=== PATIENT | male | born 1965 | race Caucasian/White ===

== ENCOUNTER 2020-07-18 20:28 | Observation (INO) | payer SELFPAY ==
[2020-07-18] MEDS ORDERED: Sodium Chloride 0.9% 10 ML Syringe FLUSH PRN (20:31)
[2020-07-18] MEDS ORDERED: Labetalol 100 MG/20 ML MDV IVPUSH ONE (20:31)
[2020-07-18] MEDS ORDERED: Sodium Chloride 0.9% 1,000 ML IV STA (20:31)
[2020-07-18] MEDS ORDERED: Sodium Chloride 0.9% 10 ML SDV IV PRN (20:31)
[2020-07-18] MEDS ORDERED: Sodium Chloride 0.9% 2.5 ML Syringe FLUSH PRN ×2 (20:31)
[2020-07-18] MEDS ORDERED: Iopamidol 755 MG/ML 500 ML Multipack Bottle IVPUSH STA (20:57)
--- NOTE | 2020-07-18 21:22 | CT ---
INDICATION: STROKE CODE CT HEAD WITHOUT CONTRAST TECHNIQUE: Multiple axial CT images were performed through the head without intravenous contrast administration. COMPARISON: No previous studies are currently available for comparison. FINDINGS: No acute intracranial hemorrhage is identified. No extra-axial collections are evident and there is no mass effect or midline shift. Ventricles are normal in size and configuration. Brain parenchyma appears normal with unremarkable stallings-white differentiation. Osseous structures are within normal limits and no fractures are seen. Included portions of the paranasal sinuses and mastoid air cells are normally aerated aside from minimal mucosal thickening in the right maxillary sinus. IMPRESSION: Negative non-contrast head CT. AMITA RBENNER MD [facility] Dictated by: Aries Brenenr MD @ 07/18/2020 21:21:40 (Electronically Signed)
--- NOTE | 2020-07-18 21:22 | CT ---
DATE: 07/18/2020 CLINICAL HISTORY: Patient with focal neurological deficits. TECHNIQUE: Standard helical CT image acquisition through the head and neck was performed after intravenous contrast bolus enhancement. Multiplanar reconstructed images were performed and interpreted. COMPARISON: CT same day. FINDINGS: The origins of the great vessels from the aortic arch are patent. The origin of the right vertebral artery is patent. The origin of the left vertebral artery is patent. The common carotid arteries are patent There is no stenosis at the origin of the right internal carotid artery. There is no stenosis at the origin of the left internal carotid artery. The rest of the cervical segments of the internal carotid arteries are patent up to their intracranial segments. The intracranial segments of the internal carotid arteries are patent. The left vertebral artery is dominant. The cervical segments of the vertebral arteries are patent. The intracranial segments of the vertebral arteries are patent. The middle cerebral arteries are normal without aneurysm or proximal occlusion identified. The anterior cerebral arteries are normal without aneurysm or proximal occlusion identified. The anterior communicating artery is well visualized and appears normal. The basilar artery is normal without aneurysm or occlusion. The posterior cerebral arteries are normal without aneurysm or proximal occlusion. There is normal opacification of major intracranial venous structures. The visualized lung apices demonstrate severe emphysema. The thyroid gland is unremarkable. The soft tissues of the neck are unremarkable. There are degenerative changes in the cervical spine. IMPRESSION: Normal CT angiogram of the head and neck. Please note that all CT scans at this facility use dose modulation, iterative reconstruction, and/or weight-based dosing when appropriate to reduce radiation dose to as low as reasonably achievable. Dictated by Janett Brar MD @ Jul 18 2020 11:28PM Signed by Dr. Janett Brar @ Jul 18 2020 11:34PM
--- NOTE | 2020-07-18 21:29 | EDM.PDOC ---
ED HPI GENERAL MEDICAL PROBLEM - General Chief Complaint: Neuro Symptoms/Deficits Stated Complaint: POSSIBLE STROCK Time Seen by Provider: 07/18/20 20:30 - History of Present Illness INITIAL COMMENTS - FREE TEXT/NARRATIVE: HISTORY AND PHYSICAL: History of present illness: This is a 54-year-old gentleman with history significant for bipolar affective disorder who presents ER today with acute onset of headache and left-sided we akness that was identified by EMS upon their arrival. Patient's last known well was 7:45 PM. Patient reports that he was at home and invited friends him over for dinner. Patient reports that while he was standing he started feeling extremely dizzy, had pain and pressure to his left eye, reports he was developing a headache and some photophobia. He reports that he started feeling weak to both his lower extremities and so he sat down so he does not fall. Patient reports that he start feeling extremely dizzy. EMS was dispatched by his friends and secondary to the symptoms. EMS reports upon arrival he was having significant weakness to his left upper and left lower extremity. They report that he was able to walk but was dragging his leg. When I spoke to the patient, he reports that he felt weak all over and had no focal weakness. Patient reports that he had no slurring of his speech or difficulty finding words. Patient reports that he was having a hard time speaking but felt it was secondary to his mouth being extremely dry and nervous. Patient denies any double vision or blurred vision. Patient denies any focal weakness to his upper or lower extremities. Patient reports that he felt weak all over. Patient denies any chest pain or shortness of breath. Patient denies any abdominal pain or discomfort. Patient has a recent fevers, shakes, chills, nausea, vomiting, diarrhea, dysuria, frequency, urgency, melena, bright red blood per rectum. Patient reports no prior abdominal or chest surgeries. Patient reports no history of hypertension, diabetes, liver, lung, kidney problems although he reports that he cannot say for sure that he does not have any of these illnesses secondary to limited access to healthcare secondary to lack of insurance issues. Review of systems: As per history of present illness and below otherwise all systems reviewed and negative. Past medical history: As per history of present illness and as reviewed below otherwise noncontribu tory. Surgical history: As per history of present illness and as reviewed below otherwise noncontributory. Social history: No reported history of drug or alcohol abuse. Family history: As per history of present illness and as reviewed below otherwise noncontributory. Physical exam: This patient was seen and evaluated during the 2019 SARS-CoV-2 novel coronavirus pandemic period. Community viral transmission is ongoing at time of this encounter and the emergency department is operating under pandemic response procedures. Constitutional: Patient is oriented to person, place, and time. Appears well- developed and well-nourished. No distress. HEENT: Moist mucous membranes Head: Normocephalic and atraumatic Eyes: Right eye exhibits no discharge. Left eye exhibits no discharge. No scleral icterus Neck: Normal range of motion. No tracheal deviation present. Cardiovascular: Normal rate and regular rhythm. Pulmonary: Effort normal, no respiratory distress. Abdominal: No distention Musculoskeletal: Normal range of motion Neurologic: Alert and oriented to person, place and time. Skin: [place], warm and dry. Psychiatric: Normal mood and affect. Behavior is normal. Judgment and thought content normal. Nursing note and vital signs have been reviewed Neuro: A&Ox3. Cranial nerves II-XII grossly intact, 5/5 strength to bilateral upper and lower extremities, sensation intact to bilateral upper and lower extremities, no nystagmus, PERRLA, EOMI, normal speech, proprioception intact to bilateral lower extremities, normal finger to nose test, gait normal, no facial asymmetry. 1a) Level of consciousness: 0=alert; 1=not alert but arousable by minor stimulation; 2=not alert: requires repeated stimulation to attend or is obtunded and requires strong or painful stimulation to make movements; 3=responds only with reflex motor or autonomic effects or totally unresponsive, flaccid and areflexic SCORE [0] 1b) LOC questions ("what month is it?", "how old are you?"): 0=answers both correctly; 1=answers one correctly; 2=answers neither correctly SCORE 0 1c) LOC commands (command patient to "open and close your eyes. Net Maker and release your hand.): 0=performs both correctly; 1=performs one correctly; 2=performs neither correctly SCORE 0 2) Best gaze ("follow my finger"): 0=normal; 1=partial gaze palsy; 2=forced deviation or total gaze paresis SCORE 0 3) Visual smith (use confrontation, finger counting, or visual threat. confront upper/lower quadrants of visual field): 0=no visual loss; 1=partial hemianopsia; 2=complete hemianopsia; 3=bilateral hemianopsia SCORE 0 4) Facial palsy (by words or pantomime, encourage patient to: "Show me your teeth. Raise your eyebrows. Close your eyes."): 0=normal symmetrical movement; 1=minor paralysis (flattened nasolabial fold, asymmetry on smiling); 2=partial paralysis (lower face); 3=complete paralysis SCORE 0 5) Arm motor (alternately position patient's arms. extend each arm with palms down [90 degrees if sitting, 45 degrees if supine] - test each arm in turn and start with nonparetic arm first): 0=no drift; 1=drift (arm falls before 10 seconds); 2=some effort vs. gravity; 3=no effort vs. gravity; 4=no movement; UN (untestable)=amputation or joint fusion SCORE 0 6) Leg motor (alternately position patient's legs. extend each leg [30 degrees, always while supine] - test nonparetic leg first): 0=no drift; 1=drift (leg falls before 5 seconds); 2=some effort vs. gravity; 3= no effort vs. gravity; 4=no movement; UN=amputation or joint fusion SCORE 0 7) Limb ataxia (ask patient [eyes open] to: "touch your finger to your nose. touch your heel to your [place]"): 0=absent; 1=present in one limb; 2=present in two or more limbs; UN=amputation or joint fusion SCORE 0 8) Sensory (test as many body parts as possible [arms and not hands, legs, trunk, face] for sensation using pinprick or noxious stimuli [in the obtunded or aphasic patient]): 0=normal; 1=mild to moderate sensory loss; 2=severe to total sensory loss SCORE 0 9) Best language (using pictures and a sentence list, ask patient to "describe what you see in this picture. Name the items in this picture. Read these senten tyrell"): 0=no aphasia, 1=mild to moderate aphasia; 2=severe aphasia; 3=mute, global aphasia SCORE 0 10) Dysarthria (using a simple word list, ask patient to: "read these words" or "repeat these words"): 0=normal articulation; 1=mild to moderate dysarthria; 2=severe dysarthria; UN=intubated or other physical barrier SCORE 0 11) Extinction and inattention (sufficient information to determine these scores may have been obtained during the prior testing): 0=no abnormality; 1=visual, tactile, auditory, spatial or personal inattention; 2=profound tre-inattention or extinction to more than one modality SCORE 0 TOTAL NIHSS Score: 0 Diagnostics: CBC, CMP, PT PTT, troponin, CT of the head, CT of the head and neck, EKG: As interpreted by ER physician: Cheri: Nonspecific ST-T wave abnormalities Normal axis No evidence of ST elevation WI Normal sinus rhythm heart rate of Chest Xray: Normal cardiac silhouette No infiltrates or effusions identified. No PTX No evidence of acute bony fracture. As interpreted by ER MD: [employer]: Labetalol 20 mg IV Assessment and plan: This is a 54-year-old gentleman who presents ER today as a stroke alert secondary to episode of weakness to his left upper and left lower extremity as witnessed by EMS. Per EMS, the patient was having no difficulty speaking but was having repetitive questions at times. Patient reports that he was not feeling well prior to eating dinner and was having generalized weakness all throughout. Patient does not recall having any focal deficit, slurring speech, double vision. EMS reports that his blood pressure upon their arrival was significantly elevated, the patient was complaining of a severe headache, and was having some weakness to his left upper and left lower extremity. They report that he was able to ambulate and move his extremities but they were slightly weaker than on the right side. Upon arrival to the ED, the patient has no identifiable weakness to his upper or lower extremities on either the left or the right side. Patient's NIH score is 0 at this time. Patient had a CT scan of his head as well as a CTA of his head and neck that did not reveal any acute pathology. Upon arrival to the ED the patient did have significantly elevated blood pressure which was treated with labetalol 20 mg IV. Given the weakness identified by EMS and the patient's severe blood pressure, we will need to admit patient for possible TIA/hypertensive crisis. Patient is currently asymptomatic we will continue to reassess his blood pressure at this time. 9:45 PM: Patient was reevaluated by me shortly after receiving his labetalol. Patient's blood pressure currently is 156/106. Patient reports that the pain and discomfort in his left eye is completely resolved but now reports he got a l ittle bit of discomfort behind his right eye. Patient reports that neurologically he feels completely back to baseline. He reports no weakness in his lower or upper extremities. Patient reports no difficulty with his speech. Patient denies any paresthesias. Patient reports no difficulty with word finding. Patient symptoms at this time of completely resolved. Patient's presentation appears to be most consistent with a TIA. Critical Care: The high probability of sudden, clinically significant deterioration in the patient's condition required the highest level of my preparedness to intervene urgently. The services I provided to this patient were to treat and/or prevent clinically significant deterioration. Services included the following: chart data review, reviewing nursing notes and/or old charts, documentation time, sap payroll consultant collaboration regarding findings and treatment options, medication orders and management, direct patient care, vital sign assessments and ordering, interpreting and reviewing diagnostic studies/lab tests. Aggregate critical care time includes only time during which I was engaged inwork directly related to the patient's care, as described above, whe er at the bedside or elsewhere in the Emergency Department. It did not include time spent performing other reported procedures or the services of residents, students, nurses or physician assistants. Critical Care Time: 35 minutes Definitive disposition and diagnosis as appropriate pending reevaluation and review of above. Headache Pain Score (Numeric/FACES): 7 - Related Data Allergies Allergy/AdvReac Type Severity Reaction Status Date / Time codeine Allergy Tachycardia Verified 07/19/20 02:00 latex Allergy Swelling Verified 07/19/20 02:06 Home Meds: Home Meds Acetaminophen [Tylenol Arthritis] 650 mg PO Q6H PRN #0 07/19/20 [Rx] Aspirin 81 mg PO DAILY #30 tab.chew 07/19/20 [Rx] Ibuprofen 800 mg PO Q8H PRN #0 07/19/20 [Rx] Propranolol [Inderal] 20 mg PO BID #60 tablet 07/19/20 [Rx] ED ROS GENERAL - Review of Systems Review Of Systems: See Below ED EXAM, GENERAL - Physical Exam Exam: See Below Course - Vital Signs Last Recorded V/S: Last Vital Signs Temp 97.8 F 07/19/20 14:00 Pulse 76 07/19/20 14:00 Resp 14 07/19/20 14:00 BP 170/106 H 07/19/20 14:00 Pulse Ox 97 07/19/20 14:00 - Orders/Labs/Meds Labs: Laboratory Tests 07/18/20 07/18/20 07/18/20 Range/Units 20:12 20:12 20:12 WBC 7.24 (4.0-11.0) K/uL RBC 4.30 L (4.50-5.90) M/uL Hgb 13.1 (13.0-17.0) g/dL Hct 38.9 (38.0-50.0) % MCV 90.5 (80.0-98.0) fL MCH 30.5 (27.0-32.0) pg MCHC 33.7 (31.0-37.0) g/dL RDW Std Deviation 44.7 (28.0-62.0) fl RDW Coeff of Arie 14 (11.0-15.0) % Plt Count 367 (150-400) K/uL MPV 9.40 (7.40-12.00) fL Neut % (Auto) 39.1 L (48.0-80.0) % Lymph % (Auto) 45.3 H (16.0-40.0) % [place] % (Auto) 10.9 (0.0-15.0) % Eos % (Auto) 3.3 (0.0-7.0) % Baso % (Auto) 1.4 (0.0-1.5) % Neut # (Auto) 2.8 (1.4-5.7) K/uL Lymph # (Auto) 3.3 H (0.6-2.4) K/uL [place] # (Auto) 0.8 (0.0-0.8) K/uL Eos # (Auto) 0.2 (0.0-0.7) K/uL Baso # (Auto) 0.1 (0.0-0.1) K/uL Nucleated RBC % 0.0 /100WBC Nucleated RBCs # 0 K/uL INR 1.02 APTT 27.3 (18.6-31.3) SEC Sodium 136 (136-148) mmol/L Potassium 3.5 (3.5-5.1) mmol/L Chloride 100 (98-107) mmol/L Carbon Dioxide 27.5 (21.0-32.0) mmol/L BUN 16 (7.0-18.0) mg/dL Creatinine 0.7 L (0.8-1.3) mg/dL Est Cr Clr Drug Dosing 118.57 mL/min Estimated GFR (MDRD) > 60.0 ml/min Glucose 72 L (74-106) mg/dL Hemoglobin A1c (4.5 - 6.2) % Calcium 8.5 (8.5-10.1) mg/dL Total Bilirubin 0.7 (0.2-1.0) mg/dL AST 18 (15-37) IU/L ALT 22 (14-63) IU/L Alkaline Phosphatase 63 (46-116) U/L Troponin I < 0.050 (0.000-0.056) ng/mL Total Protein 7.0 (6.4-8.2) g/dL Albumin 3.9 (3.4-5.0) g/dL Globulin 3.1 (2.6-4.0) g/dL Albumin/Globulin Ratio 1.3 (0.9-1.6) Triglycerides (0-200) mg/dL Cholesterol (50-200) mg/dL LDL Cholesterol, Calc (60-180) mg/dL VLDL Cholesterol (5-55) mg/dL HDL Cholesterol (40-60) mg/dL Cholesterol/HDL Ratio (3.3-6.0) TSH 3rd Generation 2.50 (0.36-3.74) uIU/mL Urine Color Urine Appearance Urine pH (5.0-8.0) Ur Specific [place] (1.001-1.035) Urine Protein (NEGATIVE) mg/dL Urine Glucose (UA) (NEGATIVE) mg/dL Urine Ketones (NEGATIVE) mg/dL Urine Occult Blood (NEGATIVE) Urine Nitrite (NEGATIVE) Urine Bilirubin (NEGATIVE) Urine Urobilinogen (<2.0) EU/dL Ur Leukocyte Esterase (NEGATIVE) Urine RBC (0-2/HPF) Urine WBC (0-5/HPF) Ur Epithelial Cells (NONE-FEW) Urine Bacteria (NEGATIVE) Urine Opiates Screen (NEGATIVE) Ur Oxycodone Screen (NEGATIVE) Urine Methadone Screen (NEGATIVE) Ur Barbiturates Screen (NEGATIVE) Ur Phencyclidine Scrn (NEGATIVE) Ur Amphetamine Screen (NEGATIVE) U Methamphetamines Scrn (NEGATIVE) U Benzodiazepines Scrn (NEGATIVE) U Cocaine Metab Screen (NEGATIVE) U Marijuana (THC) Screen (NEGATIVE) Ethyl Alcohol < 3.0 mg/dL SARS-CoV-2 RNA (SILVERIO) (NEGATIVE) 07/18/20 07/18/20 07/18/20 Range/Units 20:12 20:12 21:38 WBC (4.0-11.0) K/uL RBC (4.50-5.90) M/uL Hgb (13.0-17.0) g/dL Hct (38.0-50.0) % MCV (80.0-98.0) fL MCH (27.0-32.0) pg MCHC (31.0-37.0) g/dL RDW Std Deviation (28.0-62.0) fl RDW Coeff of Arie (11.0-15.0) % Plt Count (150-400) K/uL MPV (7.40-12.00) fL Neut % (Auto) (48.0-80.0) % Lymph % (Auto) (16.0-40.0) % [place] % (Auto) (0.0-15.0) % Eos % (Auto) (0.0-7.0) % Baso % (Auto) (0.0-1.5) % Neut # (Auto) (1.4-5.7) K/uL Lymph # (Auto) (0.6-2.4) K/uL [place] # (Auto) (0.0-0.8) K/uL Eos # (Auto) (0.0-0.7) K/uL Baso # (Auto) (0.0-0.1) K/uL Nucleated RBC % /100WBC Nucleated RBCs # K/uL INR APTT (18.6-31.3) SEC Sodium (136-148) mmol/L Potassium (3.5-5.1) mmol/L Chloride (98-107) mmol/L Carbon Dioxide (21.0-32.0) mmol/L BUN (7.0-18.0) mg/dL Creatinine (0.8-1.3) mg/dL Est Cr Clr Drug Dosing mL/min Estimated GFR (MDRD) ml/min Glucose (74-106) mg/dL Hemoglobin A1c 5.4 (4.5 - 6.2) % Calcium (8.5-10.1) mg/dL Total Bilirubin (0.2-1.0) mg/dL AST (15-37) IU/L ALT (14-63) IU/L Alkaline Phosphatase (46-116) U/L Troponin I (0.000-0.056) ng/mL Total Protein (6.4-8.2) g/dL Albumin (3.4-5.0) g/dL Globulin (2.6-4.0) g/dL Albumin/Globulin Ratio (0.9-1.6) Triglycerides 113 (0-200) mg/dL Cholesterol 145 (50-200) mg/dL LDL Cholesterol, Calc 65 (60-180) mg/dL VLDL Cholesterol 22 (5-55) mg/dL HDL Cholesterol 57 (40-60) mg/dL Cholesterol/HDL Ratio 2.5 L (3.3-6.0) TSH 3rd Generation (0.36-3.74) uIU/mL Urine Color Urine Appearance Urine pH (5.0-8.0) Ur Specific [place] (1.001-1.035) Urine Protein (NEGATIVE) mg/dL Urine Glucose (UA) (NEGATIVE) mg/dL Urine Ketones (NEGATIVE) mg/dL Urine Occult Blood (NEGATIVE) Urine Nitrite (NEGATIVE) Urine Bilirubin (NEGATIVE) Urine Urobilinogen (<2.0) EU/dL Ur Leukocyte Esterase (NEGATIVE) Urine RBC (0-2/HPF) Urine WBC (0-5/HPF) Ur Epithelial Cells (NONE-FEW) Urine Bacteria (NEGATIVE) Urine Opiates Screen (NEGATIVE) Ur Oxycodone Screen (NEGATIVE) Urine Methadone Screen (NEGATIVE) Ur Barbiturates Screen (NEGATIVE) Ur Phencyclidine Scrn (NEGATIVE) Ur Amphetamine Screen (NEGATIVE) U Methamphetamines Scrn (NEGATIVE) U Benzodiazepines Scrn (NEGATIVE) U Cocaine Metab Screen (NEGATIVE) U Marijuana (THC) Screen (NEGATIVE) Ethyl Alcohol mg/dL SARS-CoV-2 RNA (SILVERIO) NEGATIVE (NEGATIVE) 07/18/20 07/18/20 Range/Units 21:53 21:53 WBC (4.0-11.0) K/uL RBC (4.50-5.90) M/uL Hgb (13.0-17.0) g/dL Hct (38.0-50.0) % MCV (80.0-98.0) fL MCH (27.0-32.0) pg MCHC (31.0-37.0) g/dL RDW Std Deviation (28.0-62.0) fl RDW Coeff of Arie (11.0-15.0) % Plt Count (150-400) K/uL MPV (7.40-12.00) fL Neut % (Auto) (48.0-80.0) % Lymph % (Auto) (16.0-40.0) % [place] % (Auto) (0.0-15.0) % Eos % (Auto) (0.0-7.0) % Baso % (Auto) (0.0-1.5) % Neut # (Auto) (1.4-5.7) K/uL Lymph # (Auto) (0.6-2.4) K/uL [place] # (Auto) (0.0-0.8) K/uL Eos # (Auto) (0.0-0.7) K/uL Baso # (Auto) (0.0-0.1) K/uL Nucleated RBC % /100WBC Nucleated RBCs # K/uL INR APTT (18.6-31.3) SEC Sodium (136-148) mmol/L Potassium (3.5-5.1) mmol/L Chloride (98-107) mmol/L Carbon Dioxide (21.0-32.0) mmol/L BUN (7.0-18.0) mg/dL Creatinine (0.8-1.3) mg/dL Est Cr Clr Drug Dosing mL/min Estimated GFR (MDRD) ml/min Glucose (74-106) mg/dL Hemoglobin A1c (4.5 - 6.2) % Calcium (8.5-10.1) mg/dL Total Bilirubin (0.2-1.0) mg/dL AST (15-37) IU/L ALT (14-63) IU/L Alkaline Phosphatase (46-116) U/L Troponin I (0.000-0.056) ng/mL Total Protein (6.4-8.2) g/dL Albumin (3.4-5.0) g/dL Globulin (2.6-4.0) g/dL Albumin/Globulin Ratio (0.9-1.6) Triglycerides (0-200) mg/dL Cholesterol (50-200) mg/dL LDL Cholesterol, Calc (60-180) mg/dL VLDL Cholesterol (5-55) mg/dL HDL Cholesterol (40-60) mg/dL Cholesterol/HDL Ratio (3.3-6.0) TSH 3rd Generation (0.36-3.74) uIU/mL Urine Color YELLOW Urine Appearance CLEAR Urine pH 7.0 (5.0-8.0) Ur Specific [place] 1.010 (1.001-1.035) Urine Protein NEGATIVE (NEGATIVE) mg/dL Urine Glucose (UA) NEGATIVE (NEGATIVE) mg/dL Urine Ketones NEGATIVE (NEGATIVE) mg/dL Urine Occult Blood TRACE-INTACT H (NEGATIVE) Urine Nitrite NEGATIVE (NEGATIVE) Urine Bilirubin NEGATIVE (NEGATIVE) Urine Urobilinogen 0.2 (<2.0) EU/dL Ur Leukocyte Esterase NEGATIVE (NEGATIVE) Urine RBC 1-3 (0-2/HPF) Urine WBC 0-1 (0-5/HPF) Ur Epithelial Cells RARE (NONE-FEW) Urine Bacteria RARE (NEGATIVE) Urine Opiates Screen NEGATIVE (NEGATIVE) Ur Oxycodone Screen NEGATIVE (NEGATIVE) Urine Methadone Screen NEGATIVE (NEGATIVE) Ur Barbiturates Screen NEGATIVE (NEGATIVE) Ur Phencyclidine Scrn NEGATIVE (NEGATIVE) Ur Amphetamine Screen NEGATIVE (NEGATIVE) U Methamphetamines Scrn NEGATIVE (NEGATIVE) U Benzodiazepines Scrn NEGATIVE (NEGATIVE) U Cocaine Metab Screen NEGATIVE (NEGATIVE) U Marijuana (THC) Screen NEGATIVE (NEGATIVE) Ethyl Alcohol mg/dL SARS-CoV-2 RNA (SILVERIO) (NEGATIVE) Meds: Medications Discontinued Medications Generic Name Dose Route Start Last Admin Trade Name Freq PRN Reason Stop Dose Admin Acetaminophen 650 mg 07/19/20 00:28 07/19/20 11:27 Tylenol PO 650 mg Q6H PRN Administration Pain Gadobenate Dimeglumine 20 ml 07/19/20 10:34 07/19/20 10:35 Multihance IVPUSH 07/19/20 10:35 12 ml ONETIME STA Administration Sodium Chloride 1,000 mls @ 125 mls/hr 07/18/20 20:31 07/18/20 21:05 Normal Saline IV 02/22/21 04:30 125 mls/hr NOW STA Administration Iopamidol 100 ml 07/18/20 20:57 07/18/20 20:57 Isovue Multipack-370 (76%) IVPUSH 07/18/20 20:58 100 ml ONETIME STA Administration Labetalol HCl 20 mg 07/18/20 20:31 07/18/20 21:06 Normodyne IVPUSH 07/18/20 20:32 1 dose ONETIME ONE Administration Morphine Sulfate 4 mg 07/18/20 21:43 07/18/20 22:09 Morphine IVPUSH 07/18/20 21:44 4 mg ONETIME ONE Administration Ondansetron HCl 4 mg 07/18/20 21:43 07/18/20 22:09 Zofran IVPUSH 07/18/20 21:44 4 mg ONETIME ONE Administration Ondansetron HCl 4 mg 07/19/20 07:52 Zofran IVPUSH Q4H PRN Nausea Propranolol HCl 20 mg 07/19/20 13:30 07/19/20 14:29 Inderal PO 20 mg BID RHONDA Administration Sodium Chloride 2.5 ml 07/18/20 20:31 07/18/20 21:06 Saline Flush FLUSH 2.5 ml ASDIRECTED PRN Administration Keep Vein Open Sodium Chloride 10 ml 07/18/20 20:31 07/18/20 21:06 Saline Flush FLUSH 10 ml ASDIRECTED PRN Administration Keep Vein Open Sodium Chloride 2.5 ml 07/18/20 20:31 07/18/20 21:06 Saline Flush FLUSH 2.5 ml ASDIRECTED PRN Administration Keep Vein Open Sodium Chloride 10 ml 07/18/20 20:31 Normal Saline IV ASDIRECTED PRN IV Use Sodium Chloride 2.5 ml 07/19/20 07:52 Saline Flush FLUSH ASDIRECTED PRN Keep Vein Open Departure - Departure Time of Disposition: 22:10 Disposition: Refer to Observation Condition: Good Clinical Impression: Hypertensive crisis, unspecified, TIA (transient ischemic attack) - Discharge Information
[2020-07-18 21:40] LABS: BLOOD UREA NITROGEN,BUN 16 mg/dL (7.0-18.0); CARBON DIOXIDE,CO2 27.5 mmol/L (21.0-32.0); CHLORIDE,CL 100 mmol/L (98-107); GLUCOSE RANDOM 72 mg/dL (74-106); POTASSIUM,K 3.5 mmol/L (3.5-5.1); SODIUM,NA 136 mmol/L (136-148)
[2020-07-18] MEDS ORDERED: Ondansetron 4 MG/2 ML SDV IVPUSH ONE (21:43)
[2020-07-18] MEDS ORDERED: Morphine 4 MG/ML Syringe IVPUSH ONE (21:43)
--- NOTE | 2020-07-18 22:00 | CR ---
INDICATION: Hypertension. Stroke like symptoms. TECHNIQUE: AP portable chest. FINDINGS: Clear lungs. Normal heart size and pulmonary vascularity. Resection of the distal left clavicle. IMPRESSION: No acute cardiopulmonary process identified. Dictated by Bandar Yan MD @ Jul 18 2020 9:59PM Signed by Dr. Bandar Yan @ Jul 18 2020 9:59PM
[2020-07-19] MEDS: Acetaminophen 325 MG Tab PO PRN ×2 (05:22→11:27)
[2020-07-19] MEDS ORDERED: Ondansetron 4 MG/2 ML SDV IVPUSH PRN (07:52)
[2020-07-19] MEDS ORDERED: Sodium Chloride 0.9% 2.5 ML Syringe FLUSH PRN (07:52)
--- NOTE | 2020-07-19 07:55 | PCM.HP.2 ---
H&P History of Present Illness - General Date of Service: 07/19/20 Admit Problem/Dx: Admission Diagnosis/Problem Admission Diagnosis/Problem Hypertensive crisis Source of Information: Patient History Limitations: Reports: No Limitations - History of Present Illness Initial Comments - Free Text/Narative: This 54-year-old male with past medical history of bipolar 1 disorder and tobacco use presented to the ER with history of headache that started shortly prior to arrival. He also reports left upper and lower extremity weakness along with some inability to speak. He reports that he had friends over for supper. They were just sitting down to eat supper he had taken a bite of his pizza and suddenly had onset of dizziness and headache that started behind his left eye. He reports he was trying to speak but could not get words out and felt a little confused. Ambulance was called and they noted left upper and lower extremity weakness on their exam. He was brought to the ER and noted to have significantly elevated blood pressures 180s/110s. He reports prior to this the last few months have been quite stressful for him as he has been unemployed and financial funds have been low. He denies being on any current home medications. He denies any recent fevers chills chest pain palpitations abdominal pain or any other neurological findings. He reports he has a history of migraines from the age of 8 to late 20s to early 30s. He reports he entered into the [employer] at that point and had not had any headaches since. He denies being on any previous medications except for abortive Tylenol and aspirin. He reports smoking at least a pack a day which he has cut back due to financial reasons currently. He also reports recreational marijuana use when able to afford it. Denies any alcohol use on a regular basis. But does report having a beer last night with pizza. In the ER no leukocytosis noted hemoglobin 13.1 INR 1.2 sodium 136 potassium 3.5 BUN 16 creatinine 0.7 glucose 72 A1c 5.4 troponin negative TSH 2.5. Noncontrast head CT was obtained which was negative for any acute intracranial process. CTA of the head and neck were also obtained which were negative for any large vessel occlusion or stenosis. He was treated with labetalol for elevated blood pressures along with morphine and Zofran for headache. While in the ER no significant neurological deficits were noted. Headache improved and he had no weakness to any extremities. He reports that headache was somewhat relieved with this but otherwise felt goofy from the morphine. Chest x-ray negative for any acute cardiopulmonary process. EKG and sinus rhythm with no ischemic changes. No arrhythmia noted after labetalol blood pressure improved to 160s/90s. He was admitted observation for possible TIA/CVA. PCP [facility] Head[facility] Pain Score (Numeric/FACES): 7 - Related Data Allergies/Adverse Reactions: Allergies Allergy/AdvReac Type Severity Reaction Status Date / Time codeine Allergy Tachycardia Verified 07/19/20 02:00 latex Allergy Swelling Verified 07/19/20 02:06 Home Medications: Home Meds Acetaminophen [Tylenol Arthritis] 650 mg PO Q6H PRN #0 07/19/20 [Rx] Aspirin 81 mg PO DAILY #30 tab.chew 07/19/20 [Rx] Ibuprofen 800 mg PO Q8H PRN #0 07/19/20 [Rx] Propranolol [Inderal] 20 mg PO BID #60 tablet 07/19/20 [Rx] Past Medical History - Past Health History Medical/Surgical History: Denies Medical/Surgical History HEENT History: Reports: Head Cardiovascular History: Reports: None. Denies: Afib, Blood Clots/VTE/DVT, Hypertension, NE Respiratory History: Reports: None. Denies: COPD, Sleep Apnea, SOB Gastrointestinal History: Reports: None Psychiatric History: Reports: Bipolar Endocrine/Metabolic History: Reports: None. Denies: Diabetes, Type II, Hypothyroidism - Infectious Disease History Infectious Disease History: Reports: Chicken Pox - Past Surgical History Other HEENT Surgeries/Procedures: hx of concussion Musculoskeletal Surgical History: Reports: Other (See Below) Other Musculoskeletal Surgeries/Procedures:: right ankle sx. right knee sx. left knee sx. left shoulder sx Social & Family History - Family History Family Medical History: No Pertinent Family History - Tobacco Use Tobacco Use Status *Q: Current Every Day Tobacco User Years of Tobacco use: 30 Packs/Tins Daily: 1 Used Tobacco, but Quit: No Smoking Cessation Information Provided To Patient: Yes - Caffeine Use Caffeine Use: Reports: Coffee, Energy Drinks, Tea - Alcohol Use Alcohol Use Frequency: Rarely, Socially - Recreational Drug Use Recreational Drug Use: Yes Drug Use in Last 12 Months: Yes Recreational Drug Type: Reports: Marijuana/Hashish Recreational Drug Use Frequency: Socially - Living Situation & Occupation Living situation: Reports: Single Occupation: Unemployed H&P Review of Systems - Review of Systems: Review Of Systems: See Below General: Reports: No Symptoms. Denies: Fever, Chills, Malaise, Weakness, Fatigue HEENT: Reports: Headaches, Vertigo. Denies: Visual Changes Pulmonary: Reports: No Symptoms. Denies: Shortness of Breath Cardiovascular: Reports: No Symptoms. Denies: Chest Pain Gastrointestinal: Reports: No Symptoms. Denies: Abdominal Pain, Black Stool, Bloody Stool, Nausea, Vomiting Genitourinary: Reports: No Symptoms. Denies: Dysuria, Frequency, Burning Musculoskeletal: Reports: No Symptoms. Denies: Neck Pain Skin: Reports: No Symptoms Psychiatric: Reports: No Symptoms Neurological: Reports: Headache. Denies: Paresthesia, Seizure, Syncope, Tremors, Weakness Hematologic/Lymphatic: Reports: No Symptoms Immunologic: Reports: No Symptoms Exam - Exam Exam: See Below - Vital Signs Vital Signs: Last Vital Signs Temp 98.2 F 07/19/20 04:00 Pulse 73 07/19/20 05:20 Resp 22 H 07/19/20 05:20 BP 135/78 07/19/20 05:20 Pulse Ox 99 07/19/20 05:20 Weight: 66.678 kg - Exam Quality Assessment: DVT Prophylaxis. No: Supplemental Oxygen General: Alert, Oriented, Cooperative HEENT: Conjunctiva Clear, Mucosa Moist & [place], Posterior Pharynx Clear, Pupils Equal, Pupils Reactive Neck: Supple, Trachea Midline Lungs: Clear to Auscultation, Normal Respiratory Effort Cardiovascular: Regular Rate, Regular Rhythm. No: Normal S1, Normal S2 GI/Abdominal Exam: Normal Bowel Sounds, Soft, Non-Tender Extremities: Normal Inspection, Normal Range of Motion, Non-Tender, No Pedal Edema, Normal Capillary Refill Neurological: Cranial Nerves Intact, Reflexes Equal Bilateral, Strength Equal B ilateral, Normal Gait, Normal Speech Neuro Extensive - Mental Status: Alert, Oriented x3, Normal Mood/Affect Neuro Extensive - Motor, Sensory, Reflexes: CN II-XII Intact Psychiatric: Alert, Normal Affect, Normal Mood - Patient Data Lab Results Last 24 hrs: Laboratory Results - last 24 hr 07/18/20 07/18/20 07/18/20 Range/Units 20:12 20:12 20:12 WBC 7.24 (4.0-11.0) K/uL RBC 4.30 L (4.50-5.90) M/uL Hgb 13.1 (13.0-17.0) g/dL Hct 38.9 (38.0-50.0) % MCV 90.5 (80.0-98.0) fL MCH 30.5 (27.0-32.0) pg MCHC 33.7 (31.0-37.0) g/dL RDW Std Deviation 44.7 (28.0-62.0) fl RDW Coeff of Arie 14 (11.0-15.0) % Plt Count 367 (150-400) K/uL MPV 9.40 (7.40-12.00) fL Neut % (Auto) 39.1 L (48.0-80.0) % Lymph % (Auto) 45.3 H (16.0-40.0) % [place] % (Auto) 10.9 (0.0-15.0) % Eos % (Auto) 3.3 (0.0-7.0) % Baso % (Auto) 1.4 (0.0-1.5) % Neut # (Auto) 2.8 (1.4-5.7) K/uL Lymph # (Auto) 3.3 H (0.6-2.4) K/uL [place] # (Auto) 0.8 (0.0-0.8) K/uL Eos # (Auto) 0.2 (0.0-0.7) K/uL Baso # (Auto) 0.1 (0.0-0.1) K/uL Nucleated RBC % 0.0 /100WBC Nucleated RBCs # 0 K/uL INR 1.02 APTT 27.3 (18.6-31.3) SEC Sodium 136 (136-148) mmol/L Potassium 3.5 (3.5-5.1) mmol/L Chloride 100 (98-107) mmol/L Carbon Dioxide 27.5 (21.0-32.0) mmol/L BUN 16 (7.0-18.0) mg/dL Creatinine 0.7 L (0.8-1.3) mg/dL Est Cr Clr Drug Dosing 118.57 mL/min Estimated GFR (MDRD) > 60.0 ml/min Glucose 72 L (74-106) mg/dL Calcium 8.5 (8.5-10.1) mg/dL Total Bilirubin 0.7 (0.2-1.0) mg/dL AST 18 (15-37) IU/L ALT 22 (14-63) IU/L Alkaline Phosphatase 63 (46-116) U/L Troponin I < 0.050 (0.000-0.056) ng/mL Total Protein 7.0 (6.4-8.2) g/dL Albumin 3.9 (3.4-5.0) g/dL Globulin 3.1 (2.6-4.0) g/dL Albumin/Globulin Ratio 1.3 (0.9-1.6) TSH 3rd Generation 2.50 (0.36-3.74) uIU/mL Urine Color Urine Appearance Urine pH (5.0-8.0) Ur Specific Wallace (1.001-1.035) Urine Protein (NEGATIVE) mg/dL Urine Glucose (UA) (NEGATIVE) mg/dL Urine Ketones (NEGATIVE) mg/dL Urine Occult Blood (NEGATIVE) Urine Nitrite (NEGATIVE) Urine Bilirubin (NEGATIVE) Urine Urobilinogen (<2.0) EU/dL Ur Leukocyte Esterase (NEGATIVE) Urine RBC (0-2/HPF) Urine WBC (0-5/HPF) Ur Epithelial Cells (NONE-FEW) Urine Bacteria (NEGATIVE) Urine Opiates Screen (NEGATIVE) Ur Oxycodone Screen (NEGATIVE) Urine Methadone Screen (NEGATIVE) Ur Barbiturates Screen (NEGATIVE) Ur Phencyclidine Scrn (NEGATIVE) Ur Amphetamine Screen (NEGATIVE) U Methamphetamines Scrn (NEGATIVE) U Benzodiazepines Scrn (NEGATIVE) U Cocaine Metab Screen (NEGATIVE) U Marijuana (THC) Screen (NEGATIVE) Ethyl Alcohol < 3.0 mg/dL SARS-CoV-2 RNA (SILVERIO) (NEGATIVE) 07/18/20 07/18/20 07/18/20 Range/Units 21:38 21:53 21:53 WBC (4.0-11.0) K/uL RBC (4.50-5.90) M/uL Hgb (13.0-17.0) g/dL Hct (38.0-50.0) % MCV (80.0-98.0) fL MCH (27.0-32.0) pg MCHC (31.0-37.0) g/dL RDW Std Deviation (28.0-62.0) fl RDW Coeff of Arei (11.0-15.0) % Plt Count (150-400) K/uL MPV (7.40-12.00) fL Neut % (Auto) (48.0-80.0) % Lymph % (Auto) (16.0-40.0) % [place] % (Auto) (0.0-15.0) % Eos % (Auto) (0.0-7.0) % Baso % (Auto) (0.0-1.5) % Neut # (Auto) (1.4-5.7) K/uL Lymph # (Auto) (0.6-2.4) K/uL [place] # (Auto) (0.0-0.8) K/uL Eos # (Auto) (0.0-0.7) K/uL Baso # (Auto) (0.0-0.1) K/uL Nucleated RBC % /100WBC Nucleated RBCs # K/uL INR APTT (18.6-31.3) SEC Sodium (136-148) mmol/L Potassium (3.5-5.1) mmol/L Chloride (98-107) mmol/L Carbon Dioxide (21.0-32.0) mmol/L BUN (7.0-18.0) mg/dL Creatinine (0.8-1.3) mg/dL Est Cr Clr Drug Dosing mL/min Estimated GFR (MDRD) ml/min Glucose (74-106) mg/dL Calcium (8.5-10.1) mg/dL Total Bilirubin (0.2-1.0) mg/dL AST (15-37) IU/L ALT (14-63) IU/L Alkaline Phosphatase (46-116) U/L Troponin I (0.000-0.056) ng/mL Total Protein (6.4-8.2) g/dL Albumin (3.4-5.0) g/dL Globulin (2.6-4.0) g/dL Albumin/Globulin Ratio (0.9-1.6) TSH 3rd Generation (0.36-3.74) uIU/mL Urine Color YELLOW Urine Appearance CLEAR Urine pH 7.0 (5.0-8.0) Ur Specific [place] 1.010 (1.001-1.035) Urine Protein NEGATIVE (NEGATIVE) mg/dL Urine Glucose (UA) NEGATIVE (NEGATIVE) mg/dL Urine Ketones NEGATIVE (NEGATIVE) mg/dL Urine Occult Blood TRACE-INTACT H (NEGATIVE) Urine Nitrite NEGATIVE (NEGATIVE) Urine Bilirubin NEGATIVE (NEGATIVE) Urine Urobilinogen 0.2 (<2.0) EU/dL Ur Leukocyte Esterase NEGATIVE (NEGATIVE) Urine RBC 1-3 (0-2/HPF) Urine WBC 0-1 (0-5/HPF) Ur Epithelial Cells RARE (NONE-FEW) Urine Bacteria RARE (NEGATIVE) Urine Opiates Screen NEGATIVE (NEGATIVE) Ur Oxycodone Screen NEGATIVE (NEGATIVE) Urine Methadone Screen NEGATIVE (NEGATIVE) Ur Barbiturates Screen NEGATIVE (NEGATIVE) Ur Phencyclidine Scrn NEGATIVE (NEGATIVE) Ur Amphetamine Screen NEGATIVE (NEGATIVE) U Methamphetamines Scrn NEGATIVE (NEGATIVE) U Benzodiazepines Scrn NEGATIVE (NEGATIVE) U Cocaine Metab Screen NEGATIVE (NEGATIVE) U Marijuana (THC) Screen NEGATIVE (NEGATIVE) Ethyl Alcohol mg/dL SARS-CoV-2 RNA (SILVERIO) NEGATIVE (NEGATIVE) Result Diagrams: 07/18/20 20:12 07/18/20 20:12 Sepsis Event Note - Evaluation Sepsis Screening Result: No Definite Risk - Focused Exam Vital Signs: Vital Signs Temp Pulse Resp BP Pulse Ox Pulse Ox 07/19/20 05:20 73 22 H 135/78 99 07/19/20 04:00 98.2 F 68 20 132/75 98 07/18/20 23:30 97.2 F 66 18 151/91 H 95 95 07/18/20 22:57 63 11 L 130/81 94 L 07/18/20 22:42 67 135/81 94 L 07/18/20 22:27 69 147/85 H 93 L 07/18/20 22:13 68 166/96 H 98 07/18/20 21:57 68 157/96 H 97 07/18/20 21:54 69 166/97 H 98 07/18/20 21:08 80 16 183/109 H 100 07/18/20 21:00 84 185/114 H 100 07/18/20 20:28 97.9 F 68 20 183/109 H 98 - Problem List (1) Hypertensive urgency SNOMED Code(s): 792989438 ICD Code: I16.0 - HYPERTENSIVE URGENCY Status: Acute Current Visit: Yes (2) TIA (transient ischemic attack) SNOMED Code(s): 522423914 ICD Code: G45.9 - TRANSIENT CEREBRAL ISCHEMIC ATTACK, UNSPECIFIED Status: Acute Current Visit: No (3) Bipolar 1 disorder SNOMED Code(s): 152395904 ICD Code: F31.9 - BIPOLAR DISORDER, UNSPECIFIED Status: Chronic Current Visit: Yes (4) Tobacco abuse SNOMED Code(s): 484446500 ICD Code: Z72.0 - TOBACCO USE Status: Chronic Current Visit: Yes (5) Migraine SNOMED Code(s): 71838804 ICD Code: G43.909 - MIGRAINE, UNSP, NOT INTRACTABLE, WITHOUT STATUS MIGRAINOSUS Status: Chronic Current Visit: Yes Problem List Initiated/Reviewed/Updated: Yes Orders Last 24hrs: Active Orders 24 hr Category Date Time Status Patient Status [ADT] Routine ADT 07/18/20 22:11 Active Intake and Output [RC] QSHIFT Care 07/19/20 07:53 Ordered Neuro Check [RC] Q4H Care 07/19/20 00:28 Active Oxygen Therapy [RC] PRN Care 07/19/20 07:53 Ordered Telemetry Monitoring [Cardiac Monitoring] [RC] . Care 07/18/20 22:38 Active DIRECTED VTE/DVT Education [RC] PER UNIT ROUTINE Care 07/19/20 07:53 Ordered Vital Signs [RC] Q4H Care 07/19/20 07:53 Ordered Regular Diet [DIET] Diet 07/19/20 Breakfast Active Brain w wo Cont [MR] Urgent Exams 07/19/20 07:52 Ordered GLYCOSYLATED HEMOGLOBIN,HGBA1C [CHEM] Routine Lab 07/19/20 07:51 Ordered LIPID PANEL [CHEM] Routine Lab 07/19/20 07:51 Ordered Acetaminophen [TylenoL] Med 07/19/20 00:28 Active 650 mg PO Q6H PRN Ondansetron [Zofran] Med 07/19/20 07:52 Ordered 4 mg IVPUSH Q4H PRN Sodium Chloride 0.9% [Saline Flush] Med 07/19/20 07:52 Ordered 2.5 ml FLUSH ASDIRECTED PRN Saline Lock Insert [OM.PC] Routine Oth 07/19/20 07:52 Ordered Resuscitation Status Routine Resus Stat 07/19/20 07:52 Ordered Medication Orders Acetaminophen (Tylenol) 650 mg PO Q6H PRN PRN Reason: Pain Last Admin: 07/19/20 05:22 Dose: 650 mg Documented by: BRENNEN Ondansetron HCl (Zofran) 4 mg IVPUSH Q4H PRN PRN Reason: Nausea Sodium Chloride (Saline Flush) 2.5 ml FLUSH ASDIRECTED PRN PRN Reason: Keep Vein Open Assessment/Plan Comment:: This 84-year-old male admitted for HTN urgency possible TIA/CVA 1. TIA/CVA or possible complicated migraine -Normal head CT as well as CTA head and neck. -We will obtain brain MRI with and without contrast -With history of migraines this potentially could be complex migraine. -Well get referral for neurology as outpatient -If no CVA noted on MRI will start propranolol for preventative measure along with mild blood pressure control. - Lipid panel obtained total cholesterol 145 triglycerides 113 LDL 65 HDL 57, A1c 5.4 -Smoking cessation discussed for greater than 10 minutes. He has mild motivation to improve this but otherwise seems very uncomfortable with completely quitting at this time. -Monitor on telemetry, no arrhythmias noted. -PT OT speech not needed at this time as patient has no significant deficits. 2. HTN urgency -Headache improving. After initial dose of labetalol blood pressure has much improved. -Consider propranolol for headache as well as blood pressure management if MRI n egative for stroke 3. Bipolar 1 -Currently not medicated and [facility] of [facility] has not completely establish care. VTE prophylaxis: SCDs CODE STATUS: Full code Dispo: Possible later today. Discharge plan: MRI of brain completed today. MRI is negative for any acute intracranial process. Small vessel ischemic changes noted. Blood pressure has been well maintained since arriving. Headache is much improved. He is very eager to be discharged home. We again talked about smoking cessation greater than 10 minutes. I will give him information regarding and he quit line which he states he already has at home along with other information regarding smoking cessation. I will start him on propranolol 20 mg twice daily for migraine prevention along with blood pressure management. He is to monitor his blood pressures at home and keep a log for primary care provider. He was counseled on side effects of propranolol including decreased heart rate which he should monitor along with fatigue. He will also be sent home on aspirin 81 mg daily. He will also have Zio patch placed prior to discharge today. No echo was obtained as MRI negative for stroke could consider this as an outpatient. He will be discharged home today. Even could be associated with possible TIA and or complex migraine. He will have referral to neurology as an outpatient. He is to follow-up with PCP in 7 to 10 days return to the ER sooner if concerns should arise.
[2020-07-19 08:21] LABS: HEMOGLOBIN A1C 5.4 %
[2020-07-19] MEDS ORDERED: Gadobenate Dimeglumine 529 MG/ML 20 ML SDV IVPUSH STA (10:34)
--- NOTE | 2020-07-19 12:17 | MR ---
Indication: Headaches, TIA Technique: Multiplanar, multisequence MR images of the brain were obtained before and after the administration of intravenous gadolinium. 13 cc MultiHance intravenous gadolinium Comparison: CT head July 18, 2020 Findings: On midline sagittal T1 images there are preserved flow voids and sagittal sinuses. The corpus callosum is preserved in signal and contour. The pituitary gland is unremarkable without evidence of remodeling of the sella turcica. There is no significant cerebellar tonsillar ectopia. On diffusion-weighted sequences, there is no evidence of acute or subacute infarct. On blood sensitive sequences, there is no evidence of or chronic hemorrhage. There is mild colpocephaly of the lateral ventricles is again seen. There is minimal chronic small vessel disease change within the subcortical and periventricular white matter. The remaining brain parenchyma is grossly preserved in signal intensity for age. There is no evidence of abnormal contrast enhancement. The flow voids at the skull base are unremarkable. The orbits and their contents are within normal limits. There is minimal mucosal thickening seen within the paranasal sinuses. The mastoid air cells are clear. Impression: Mild chronic small-vessel disease changes of the brain without evidence of acute intracranial abnormality. No evidence of restricted diffusion or abnormal contrast enhancement. Dictated by Howard العراقي MD @ Jul 19 2020 11:53AM Signed by Dr. Howard العراقي @ Jul 19 2020 12:15PM
[2020-07-19] MEDS ORDERED: Propranolol 20 MG Tab PO SCH (13:30)
== END 2020-07-19 16:00 | disposition home or self-care (01) ==
LOC: MW.ED 20:28 → MW.MS 22:11
PROVIDERS: ADMIT Internal Medicine; ATTEND Internal Medicine
DX: I16.0 Hypertensive urgency (principal); G45.9 Transient cerebral ischemic attack, unspecified; F17.210 Nicotine dependence, cigarettes, uncomplicated; F31.9 Bipolar disorder, unspecified; G43.909 Migraine, unspecified, not intractable, without status migrainosus; Z20.822 Contact with and (suspected) exposure to COVID-19; Z88.5 Allergy status to narcotic agent; Z91.040 Latex allergy status; Z79.82 Long term (current) use of aspirin; Z79.899 Other long term (current) drug therapy
CPT/HCPCS: 36415; 70450; 70496; 70498; 70553; 71045; 80053; 80061; 80179; 80305; 81001; 83036; 84443; 84484; 85025; 85610; 85730; 87635; 93005; A9270; A9577; J2270; J2405; J3490; J7030; Q9967; 93010; 99291; U0002

== ENCOUNTER 2020-12-11 18:57 | Emergency (ER) | payer MEDICAID ==
[2020-12-11] MEDS ORDERED: diphenhydrAMINE 50 MG Cap PO ONE (19:39)
[2020-12-11] MEDS ORDERED: predniSONE 10 MG Tab PO ONE (19:40)
[2020-12-11] MEDS ORDERED: Sulfamethoxazole/Trimethoprim 800-160 MG Tab PO ONE (19:45)
--- NOTE | 2020-12-11 19:53 | EDM.PDOC ---
ED HPI GENERAL MEDICAL PROBLEM - General Chief Complaint: Allergic Reaction Stated Complaint: POSSIBLE ALLERGIC REACTION Time Seen by Provider: 12/11/20 19:18 - History of Present Illness INITIAL COMMENTS - FREE TEXT/NARRATIVE: HISTORY AND PHYSICAL: History of present illness: This is a 55-year-old gentleman with history significant for allergies to latex who presents ER today secondary to likely exposure at work to latex resulting in exacerbation of his ongoing psoriasis. Patient reports that he has taken a course of prednisone as well as utilizing hydrocortisone cream without any significant relief. Patient reports that he utilize some cream on his neck as well to that resulted in exacerbation of the rash to his neck. Patient reports that he thinks that the balls that the cream came in might have been latex based . Patient denies any recent fevers, shakes, chills, nausea, vomiting, diarrhea, dysuria, frequency, urgency, chest pain, shortness of breath, discomfort in his throat or swelling to his oropharynx/tongue. Patient reports that in the past he was given mometasone with his relief of his rash and is requesting that I prescribe that for him once again. Review of systems: As per history of present illness and below otherwise all systems reviewed and negative. Past medical history: As per history of present illness and as reviewed below otherwise noncontributory. Surgical history: As per history of present illness and as reviewed below otherwise noncontributory. Social history: No reported history of drug abuse. Family history: As per history of present illness and as reviewed below otherwise noncontributory. Physical exam: This patient was seen and evaluated during the 2019 SARS-CoV-2 novel coronavirus pandemic period. Community viral transmission is ongoing at time of this en counter and the emergency department is operating under pandemic response procedures. Constitutional: Patient is oriented to person, place, and time. Appears well- developed and well-nourished. No distress. HEENT: Moist mucous membranes Head: Normocephalic and atraumatic Eyes: Right eye exhibits no discharge. Left eye exhibits no discharge. No scleral icterus Neck: Normal range of motion. No tracheal deviation present. Cardiovascular: Normal rate and regular rhythm. Pulmonary: Effort normal, no respiratory distress. Abdominal: No distention Musculoskeletal: Normal range of motion Neurologic: Alert and oriented to person, place and time. Skin: [place], warm and dry. Psychiatric: Normal mood and affect. Behavior is normal. Judgment and thought content normal. Nursing note and vital signs have been reviewed Patient's ER physical exam is significant for psoriatic type rash to both hands with a significant amount of erythema and some lewis crust discharge over the dorsal aspect of his hand. Patient's oropharynx is clear. Patient has no evidence of respiratory difficulty. Patient does have areas of erythema to the back of his neck as well to. Diagnostics: [] Therapeutics: [] Assessment and plan: This is a 55-year-old gentleman who presents to the ER today secondary to rash to both hands that he believes is work-related from exposure to possible latex. Patient has been utilizing Benadryl at home as well as finishing a course of prednisone already without any significant improvement. I will prescribe the patient mometasone cream per his request as it is worked in the past, as well as prednisone and Benadryl. Patient also be prescribed Bactrim DS 2 tablets p.o. twice daily x10 days as I think he started develop a cellulitis to his hands. Reassessment at the time of disposition demonstrates that the patient is in no acute distress. The patient has remained stable throughout the entire ED visit and is without objective evidence for acute process requiring urgent intervention or hospitalization. The patient is stable for discharge, counseling is provided as documented above, discussed symptomatic treatment and specific conditions for return. I have spoken with the patient/caregiver and discussed todays findings, in addition to providing specific details for the plan of care. Questions are answered and there is agreement with the plan. Definitive disposition and diagnosis as appropriate pending reevaluation and review of above. Bilateral Hand Pain Score (Numeric/FACES): 4 - Related Data Allergies Allergy/AdvReac Type Severity Reaction Status Date / Time codeine Allergy Tachycardia Verified 07/19/20 02:00 latex Allergy Swelling Verified 07/19/20 02:06 Home Meds: Home Meds Acetaminophen [Tylenol Arthritis] 650 mg PO Q6H PRN #0 07/19/20 [Rx] Aspirin 81 mg PO DAILY #30 tab.chew 07/19/20 [Rx] Ibuprofen 800 mg PO Q8H PRN #0 07/19/20 [Rx] Propranolol [Inderal] 20 mg PO BID #60 tablet 07/19/20 [Rx] Mometasone Furoate 45 gm TP BID PRN #45 gm 12/11/20 [Rx] Sulfamethoxazole/Trimethoprim [Bactrim Ds Tablet] 2 each PO BID #40 tablet 12/11/20 [Rx] diphenhydrAMINE [Benadryl] 50 mg PO Q6HR PRN #20 cap 12/11/20 [Rx] predniSONE [Prednisone] 50 mg PO DAILY #7 tablet 12/11/20 [Rx] Past Medical History - Past Health History Medical/Surgical History: Denies Medical/Surgical History HEENT History: Reports: Head Cardiovascular History: Reports: None Respiratory History: Reports: None Gastrointestinal History: Reports: None Psychiatric History: Reports: Bipolar Endocrine/Metabolic History: Reports: None - Infectious Disease History Infectious Disease History: Reports: Chicken Pox - Past Surgical History Other HEENT Surgeries/Procedures: hx of concussion Musculoskeletal Surgical History: Reports: Other (See Below) Other Musculoskeletal Surgeries/Procedures:: right ankle sx. right knee sx. left knee sx. left shoulder sx Social & Family History - Family History Family Medical History: No Pertinent Family History - Tobacco Use Tobacco Use Status *Q: Current Every Day Tobacco User Years of Tobacco use: 20 Packs/Tins Daily: 1 - Caffeine Use Caffeine Use: Reports: Coffee - Recreational Drug Use Recreational Drug Use: No - Living Situation & Occupation Living situation: Reports: Single Occupation: Unemployed ED ROS ALLERGIC REACTION - Review of Systems Review Of Systems: See Below ED EXAM GENERAL NO PERIP PULSE - Physical Exam Exam: See Below Course - Vital Signs Last Recorded V/S: Last Vital Signs Temp 98.7 F 12/11/20 19:18 Pulse 95 12/11/20 19:18 Resp 18 12/11/20 19:18 BP 132/86 12/11/20 19:18 Pulse Ox 98 12/11/20 19:18 - Orders/Labs/Meds Meds: Medications Discontinued Medications Generic Name Dose Route Start Last Admin Trade Name Freq PRN Reason Stop Dose Admin Diphenhydramine HCl 50 mg 12/11/20 19:39 Diphenhydramine 50 Mg Cap PO 12/11/20 19:40 ONETIME ONE Prednisone 40 mg 12/11/20 19:40 Prednisone 10 Mg Tab PO 12/11/20 19:41 ONETIME ONE Trimethoprim/Sulfamethoxazole 2 tab 12/11/20 19:45 Sulfamethoxazole/Trimethoprim 800-160 Mg Tab PO 12/11/20 19:46 ONETIME ONE Departure - Departure Time of Disposition: 19:52 Disposition: Home, Self-Care 01 Condition: Good Clinical Impression: Psoriasis Cellulitis Qualifiers: Site of cellulitis: extremity Site of cellulitis of extremity: upper extremity Laterality: unspecified laterality Qualified Code(s): L03.119 - Cellulitis of unspecified part of limb Allergic reaction Qualifiers: Encounter type: initial encounter Qualified Code(s): T78.40XA - Allergy, unspecified, initial encounter - Discharge Information Prescriptions: Sulfamethoxazole/Trimethoprim [Bactrim Ds Tablet] 2 each PO BID #40 tablet diphenhydrAMINE [Benadryl] 50 mg PO Q6HR PRN #20 cap PRN Reason: Itching Mometasone Furoate 45 gm TP BID PRN #45 gm PRN Reason: Rash predniSONE [Prednisone] 50 mg PO DAILY #7 tablet Instructions: Cellulitis, Adult, Psoriasis, Latex Allergy Referrals: Rashaun Reina MD [Primary Care Provider] - Additional Instructions: You were seen and evaluated in ER today secondary to rash to your hands that you believe is likely secondary to your latex allergy. It appears that the rash is an exacerbation of your psoriasis which can be exacerbated from a latex allergy. As a result of this rash, it appears that you are also developing a skin infection to your hands. You will get started on medications to assist the rash including prednisone, Benadryl, methimazole ointment. You will also be started on Bactrim DS to assist with the cellulitis/skin infection. Please make an appointment to see your family doctor in 2 to 3 days to make sure that your cellulitis is improving as well as her rash. You may need to follow-up with Work[employer]'s [employer]. if you believe this is a work- related issue. [facility] at [address] [address] The following information is given to patients seen in the emergency department who are being discharged to home. This information is to outline your options for follow-up care. We provide all patients seen in our emergency department with a follow-up referral. The need for follow-up, as well as the timing and circumstances, are variable depending upon the specifics of your emergency department visit. If you don't have a primary care physician on staff, we will provide you with a referral. We always advise you to contact your personal physician following an emergency department visit to inform them of the circumstance of the visit and for follow-up with them and/or the need for any referrals to a consulting specialist. The emergency department will also refer you to a specialist when appropriate. This referral assures that you have the opportunity for follow-up care with a specialist. All of these measure are taken in an effort to provide you with optimal care, which includes your follow-up. Under all circumstances we always encourage you to contact your private physician who remains a resource for coordinating your care. When calling for follow-up care, please make the office aware that this follow-up is from your recent emergency room visit. If for any reason you are refused follow-up, please contact the [facility] Emergency Department at and asked to speak to the emergency department charge nurse. [facility] - Primary Care [address] [place] [id number] [facility] [address] [place] [id number] Sepsis Event Note (ED) - Evaluation Sepsis Screening Result: No Definite Risk - Focused Exam Vital Signs: Vital Signs Temp Pulse Resp BP Pulse Ox 12/11/20 19:18 98.7 F 95 18 132/86 98
== END 2020-12-11 20:13 | disposition home or self-care (01) ==
LOC: MW.ED 18:57
DX: L03.113 Cellulitis of right upper limb (principal); L03.114 Cellulitis of left upper limb; T49.0X5A Adverse effect of local antifungal, anti-infective and anti-inflammatory drugs, initial encounter; L40.9 Psoriasis, unspecified; Z91.040 Latex allergy status; Z88.5 Allergy status to narcotic agent; Z79.82 Long term (current) use of aspirin; Z72.0 Tobacco use
CPT/HCPCS: 99283; A9270; 99284

== ENCOUNTER 2021-02-12 20:53 | Emergency (ER) | payer MEDICAID ==
[2021-02-12] MEDS ORDERED: predniSONE 20 MG Tab PO STA (22:13)
[2021-02-12] MEDS ORDERED: Cephalexin 500 MG Cap PO ONE (22:15)
--- NOTE | 2021-02-12 22:20 | EDM.PDOC ---
ED HPI GENERAL MEDICAL PROBLEM - General Chief Complaint: Allergic Reaction Stated Complaint: POSSIBLE ALLERGIC REACTION IN HANDS Time Seen by Provider: 02/12/21 22:07 - History of Present Illness INITIAL COMMENTS - FREE TEXT/NARRATIVE: Patient presents to the emergency department complaining of painful swollen hands with rash after using a tape that had latex in the adhesive several days ago. Patient is allergic to adhesive and started developing pain to the hand and swelling and cracking to the hands. He has some relief with steroid creams but it is quite painful. No history of diabetes. No fevers. Moderate discomfo rt Other Treatments SIGHT MOUNTER: benadryl 50 mg this AM bilateral hand Pain Score (Numeric/FACES): 4 - Related Data Allergies Allergy/AdvReac Type Severity Reaction Status Date / Time codeine Allergy Tachycardia Verified 02/12/21 21:50 latex Allergy Swelling Verified 02/12/21 21:50 Home Meds: Home Meds Acetaminophen [Tylenol Arthritis] 650 mg PO Q6H PRN #0 07/19/20 [Rx] Aspirin 81 mg PO DAILY #30 tab.chew 07/19/20 [Rx] Ibuprofen 800 mg PO Q8H PRN #0 07/19/20 [Rx] Propranolol [Inderal] 20 mg PO BID #60 tablet 07/19/20 [Rx] Mometasone Furoate 45 gm TP BID PRN #45 gm 12/11/20 [Rx] diphenhydrAMINE [Benadryl] 50 mg PO Q6HR PRN #20 cap 12/11/20 [Rx] predniSONE [Prednisone] 50 mg PO DAILY #7 tablet 12/11/20 [Rx] cephALEXin [Keflex] 500 mg PO QID #28 cap 02/12/21 [Rx] predniSONE [Prednisone] See Taper PO DAILY #45 tablet 02/12/21 [Rx] Past Medical History - Past Health History Medical/Surgical History: Denies Medical/Surgical History HEENT History: Reports: Head Cardiovascular History: Reports: None Respiratory History: Reports: None Gastrointestinal History: Reports: None Genitourinary History: Reports: None Neurological History: Reports: None Psychiatric History: Reports: Bipolar Endocrine/Metabolic History: Reports: None Hematologic History: Reports: None Immunologic History: Reports: None Oncologic (Cancer) History: Reports: None Dermatologic History: Reports: None - Infectious Disease History Infectious Disease History: Reports: Chicken Pox - Past Surgical History Head Surgeries/Procedures: Reports: None Other HEENT Surgeries/Procedures: hx of concussion Musculoskeletal Surgical History: Reports: Other (See Below) Other Musculoskeletal Surgeries/Procedures:: right ankle sx. right knee sx. left knee sx. left shoulder sx Social & Family History - Family History Family Medical History: No Pertinent Family History - Tobacco Use Tobacco Use Status *Q: Current Every Day Tobacco User Years of Tobacco use: 30 Packs/Tins Daily: 1 - Caffeine Use Caffeine Use: Reports: None - Recreational Drug Use Recreational Drug Use: No - Living Situation & Occupation Living situation: Reports: Single Occupation: Unemployed ED ROS ALLERGIC REACTION - Review of Systems Review Of Systems: See Below Constitutional: Denies: Fever Musculoskeletal: Reports: Hand Pain Skin: Reports: Rash Neurological: Denies: Numbness, Weakness ED EXAM GENERAL NO PERIP PULSE - Physical Exam Exam: See Below Text/Narrative:: CONSTITUTIONAL: well appearing in no acute distress SKIN: Bilateral hands with significant erythema and swelling and cracking of the skin. No areas of overt fluctuance. HENT: Normocephalic, atraumatic, NECK: normal range of motion PULMONARY: normal chest rise and fall, no respiratory distress or stridor NEUROLOGIC: normal speech, moves all extremities, grossly non-focal MUSCULOSKELETAL: no gross deformities, atraumatic PSYCHIATRIC: normal mood and affect Course - Vital Signs Text/Narrative:: Allergic contact dermatitis, cellulitis, psoriasis, other Patient presents as outlined above. Patient does have evidence of allergic contact dermatitis. Patient be given a steroid taper as well as Keflex to pr event superinfection with 2-day reevaluation. Last Recorded V/S: Last Vital Signs Temp 37.2 C 02/12/21 21:44 Pulse 86 02/12/21 21:44 Resp 18 02/12/21 21:44 BP 142/90 H 02/12/21 21:44 Pulse Ox 97 02/12/21 21:44 - Orders/Labs/Meds Meds: Medications Discontinued Medications Generic Name Dose Route Start Last Admin Trade Name Freq PRN Reason Stop Dose Admin Cephalexin 500 mg 02/12/21 22:15 02/12/21 22:24 Cephalexin 500 Mg Cap PO 02/12/21 22:16 500 mg ONETIME ONE Administration Prednisone 60 mg 02/12/21 22:13 02/12/21 22:23 Prednisone 20 Mg Tab PO 02/12/21 22:14 60 mg NOW STA Administration Departure - Departure Time of Disposition: 22:15 Disposition: Home, Self-Care 01 Condition: Good Clinical Impression: Allergic dermatitis - Discharge Information Prescriptions: cephALEXin [Keflex] 500 mg PO QID #28 cap predniSONE [Prednisone] See Taper PO DAILY #45 tablet Instructions: Contact Dermatitis, [id number] Referrals: PCP,None [Primary Care Provider] - Forms: ED Department Discharge Additional Instructions: Take steroid taper as prescribed. Take antibiotics as prescribed. Return in 2 days for reevaluation to ensure that there is improvement of condition. Return sooner for worsening pain or fever change or worsening condition Sepsis Event Note (ED) - Evaluation Sepsis Screening Result: No Definite Risk - Focused Exam Vital Signs: Vital Signs Temp Pulse Resp BP Pulse Ox 02/12/21 21:44 37.2 C 86 18 142/90 H 97
== END 2021-02-12 22:30 | disposition home or self-care (01) ==
LOC: MW.ED 20:53
DX: L23.9 Allergic contact dermatitis, unspecified cause (principal); Z88.5 Allergy status to narcotic agent; Z91.040 Latex allergy status; Z79.82 Long term (current) use of aspirin; Z72.0 Tobacco use
CPT/HCPCS: 99283; A9270

== ENCOUNTER 2021-06-14 11:22 | Emergency (ER) | payer MEDICAID ==
[2021-06-14] MEDS ORDERED: Sodium Chloride 0.9% 1,000 ML IV ONE (11:49)
[2021-06-14 12:34] LABS: CHLORIDE,CL 100 mmol/L (98-107); POTASSIUM,K 3.8 mmol/L (3.5-5.1)
[2021-06-14 12:46] LABS: BLOOD UREA NITROGEN,BUN 25 mg/dL (7.0-18.0); CARBON DIOXIDE,CO2 23.4 mmol/L (21.0-32.0); GLUCOSE RANDOM 107 mg/dL (74-106); SODIUM,NA 136 mmol/L (136-148)
== END 2021-06-14 14:22 | disposition home or self-care (01) ==
LOC: MW.ED 11:22
DX: R51.9 Headache, unspecified (principal); Z88.5 Allergy status to narcotic agent; Z91.040 Latex allergy status
CPT/HCPCS: 36415; 70450; 71045; 80053; 84443; 84484; 85025; 85610; 85730; 93005; 99284; J7030

== ENCOUNTER 2023-02-27 11:50 | Observation (INO) | payer MEDICAID ==
[2023-02-27] MEDS ORDERED: Sodium Chloride 0.9% 10 ML Syringe FLUSH PRN (12:11)
[2023-02-27] MEDS ORDERED: Sodium Chloride 0.9% 2.5 ML Syringe FLUSH PRN (12:11)
[2023-02-27] MEDS ORDERED: Meclizine 25 MG Tab PO ONE (12:14)
[2023-02-27] MEDS ORDERED: Sodium Chloride 0.9% 500 ML IV SCH (12:15)
[2023-02-27 12:31] LABS: BASOPHILS PERCENT AUTO 0.4 % (0.0-1.5); EOSINOPHILS ABSOLUTE AUTO 0.2 K/uL (0.0-0.7); HEMATOCRIT 43.7 % (38.0-50.0); HEMOGLOBIN 14.7 g/dL (13.0-17.0); MEAN CORPUSCULAR HEMOGLOBIN 29.8 pg (27.0-32.0); MEAN CORPUSCULAR HGB CONC 33.6 g/dL (31.0-37.0); MEAN CORPUSCULAR VOLUME 88.6 fL (80.0-98.0); MONOCYTES ABSOLUTE AUTO 0.6 K/uL (0.0-0.8); MONOCYTES PERCENT AUTO 10.1 % (0.0-15.0); NEUTROPHILS ABSOLUTE AUTO 2.7 K/uL (1.4-5.7); NEUTROPHILS PERCENT AUTO 49.5 % (48.0-80.0); PLATELET COUNT,PLT 389 K/uL (150-400); RED BLOOD CELL COUNT 4.93 M/uL (4.50-5.90); WHITE BLOOD CELL COUNT,WBC 5.47 K/uL (4.0-11.0)
[2023-02-27 13:04] LABS: INR 1.04 (0.86-1.11)
[2023-02-27 13:07] LABS: A/G RATIO 1.1 (0.9-1.6); ALANINE AMINOTRANSFERASE,ALT 26 IU/L (14-63); ALBUMIN 3.9 g/dL (3.4-5.0); ALKALINE PHOSPHATASE 77 U/L (46-116); ASPARTATE AMNIOTRANSFERASE,AST 20 IU/L (15-37); BILIRUBIN TOTAL 1.7 mg/dL (0.2-1.0); BLOOD UREA NITROGEN,BUN 10 mg/dL (7.0-18.0); CALCIUM 8.5 mg/dL (8.5-10.1); CARBON DIOXIDE,CO2 27.8 mmol/L (21.0-32.0); CHLORIDE,CL 103 mmol/L (98-107); CREATININE 0.9 mg/dL (0.8-1.3); ESTIMATED GFR 99 mL/min (>60); GLUCOSE RANDOM 120 mg/dL (74-106); POTASSIUM,K 3.4 mmol/L (3.5-5.1); PROTEIN TOTAL,TP 7.3 g/dL (6.4-8.2); SODIUM,NA 139 mmol/L (136-148)
[2023-02-27] MEDS ORDERED: Iopamidol 755 MG/ML 500 ML Multipack Bottle IVPUSH STA (14:43)
[2023-02-27] MEDS ORDERED: Aspirin 81 MG Tab.Chew PO ONE (15:28)
[2023-02-27] MEDS ORDERED: Potassium Chloride 20 MEQ Tab.ER PO STA (15:34)
[2023-02-27] MEDS ORDERED: Acetaminophen 325 MG Tab PO PRN (18:21)
[2023-02-27] MEDS ORDERED: Polyethylene Glycol 3350 Powder 17 GM Packet PO PRN (18:21)
[2023-02-27] MEDS ORDERED: Ondansetron 4 MG/2 ML SDV IVPUSH PRN (18:21)
[2023-02-28] MEDS ORDERED: Gadobenate Dimeglumine 529 MG/ML 20 ML SDV IVPUSH STA (07:18)
[2023-02-28 09:11] LABS: BASOPHILS ABSOLUTE AUTO 0.09 K/uL (0.00-0.20); BASOPHILS PERCENT AUTO 1.2 % (0.0-1.0); EOSINOPHILS ABSOLUTE AUTO 0.26 K/uL (0.00-0.45); EOSINOPHILS PERCENT AUTO 3.4 % (0.0-6.0); HEMATOCRIT 45.5 % (42.0-52.0); HEMOGLOBIN 15.5 g/dL (14.0-18.0); LYMPHOCYTES PERCENT AUTO 26.5 % (24.0-44.0); MEAN CORPUSCULAR HEMOGLOBIN 29.6 pg (28.0-32.0); MEAN CORPUSCULAR HGB CONC 34.1 g/dL (32.0-36.0); MEAN PLATELET VOLUME 9.3 fL (9.4-12.4); MONOCYTES ABSOLUTE AUTO 0.71 K/uL (0.00-0.80); MONOCYTES PERCENT AUTO 9.4 % (0.0-8.0); NEUTROPHILS ABSOLUTE AUTO 4.5 K/uL (1.8-7.7); NEUTROPHILS PERCENT AUTO 59.4 % (41.0-71.0); PLATELET COUNT,PLT 370 K/uL (150-400); RED BLOOD CELL COUNT 5.23 M/uL (4.52-5.90); WHITE BLOOD CELL COUNT,WBC 7.55 K/uL (3.9-11.3)
[2023-02-28 09:28] LABS: HEMOGLOBIN A1C 5.5 %
[2023-02-28 09:38] LABS: A/G RATIO 1.1 (0.9-1.6); ALBUMIN 3.7 g/dL (3.4-5.0); BILIRUBIN TOTAL 1.3 mg/dL (0.2-1.0); CARBON DIOXIDE,CO2 26.4 mmol/L (21.0-32.0); CREATININE 0.9 mg/dL (0.8-1.3); EST CRCL DRUG DOSING (CG) 86.67 mL/min; POTASSIUM,K 3.5 mmol/L (3.5-5.1); PROTEIN TOTAL,TP 7.1 g/dL (6.4-8.2)
[2023-02-28 10:04] LABS: TSH ULTRASENSITIVE 2.32 uIU/mL (0.36-3.74)
== END 2023-02-28 12:50 | disposition home or self-care (01) ==
LOC: MW.ED 11:50 → MW.MS 15:29
PROVIDERS: ADMIT Family Medicine; ATTEND Family Medicine
DX: R27.0 Ataxia, unspecified (principal); I10 Essential (primary) hypertension; I42.0 Dilated cardiomyopathy; I50.20 Unspecified systolic (congestive) heart failure; M54.12 Radiculopathy, cervical region; F17.200 Nicotine dependence, unspecified, uncomplicated; R26.81 Unsteadiness on feet; F41.9 Anxiety disorder, unspecified; F12.90 Cannabis use, unspecified, uncomplicated; F17.210 Nicotine dependence, cigarettes, uncomplicated; Z86.73 Personal history of transient ischemic attack (TIA), and cerebral infarction without residual deficits; Z79.82 Long term (current) use of aspirin; Z79.899 Other long term (current) drug therapy
CPT/HCPCS: 36415; 70450; 70496; 70498; 70553; 80053; 80061; 82607; 82947; 83036; 84443; 84484; 85025; 85610; 86592; 93005; 93306; 97161; A9270; A9577; G0378; J3490; J7040; Q9967; 93010; 96360; 99222; 99239; 99285-25

== ENCOUNTER 2023-03-16 10:02 | Emergency (ER) | payer MEDICAID ==
[2023-03-16] MEDS ORDERED: Sodium Chloride 0.9% 10 ML Syringe FLUSH PRN (10:14)
[2023-03-16] MEDS ORDERED: Sodium Chloride 0.9% 2.5 ML Syringe FLUSH PRN (10:14)
[2023-03-16 10:27] LABS: BASOPHILS ABSOLUTE AUTO 0.09 K/uL (0.00-0.20); BASOPHILS PERCENT AUTO 1.3 % (0.0-1.0); EOSINOPHILS ABSOLUTE AUTO 0.26 K/uL (0.00-0.45); EOSINOPHILS PERCENT AUTO 3.8 % (0.0-6.0); HEMATOCRIT 43.7 % (42.0-52.0); IMMATURE GRAN ABSOLUTE AUTO 0.01 K/uL (0.00-0.05); IMMATURE GRAN PERCENT AUTO 0.1 % (0.0-0.4); LYMPHOCYTES ABSOLUTE AUTO 1.56 K/uL (1.00-4.80); LYMPHOCYTES PERCENT AUTO 22.6 % (24.0-44.0); MEAN CORPUSCULAR HEMOGLOBIN 29.9 pg (28.0-32.0); MEAN CORPUSCULAR HGB CONC 34.3 g/dL (32.0-36.0); MEAN CORPUSCULAR VOLUME 87.2 fL (83.0-99.0); MEAN PLATELET VOLUME 9.3 fL (9.4-12.4); MONOCYTES ABSOLUTE AUTO 0.64 K/uL (0.00-0.80); MONOCYTES PERCENT AUTO 9.3 % (0.0-8.0); NEUTROPHILS ABSOLUTE AUTO 4.34 K/uL (1.80-7.70); NEUTROPHILS PERCENT AUTO 62.9 % (41.0-71.0); PLATELET COUNT,PLT 384 K/uL (150-400); RED BLOOD CELL COUNT 5.01 M/uL (4.52-5.90)
[2023-03-16 10:51] LABS: MAGNESIUM 1.8 mg/dL (1.8-2.4)
[2023-03-16 10:52] LABS: A/G RATIO 1.2 (0.9-1.6); ALBUMIN 4.3 g/dL (3.4-5.0); BILIRUBIN TOTAL 1.5 mg/dL (0.2-1.0); CALCIUM 9.7 mg/dL (8.5-10.1); CARBON DIOXIDE,CO2 29.9 mmol/L (21.0-32.0); EST CRCL DRUG DOSING (CG) 80.75 mL/min; POTASSIUM,K 3.9 mmol/L (3.5-5.1); PROTEIN TOTAL,TP 7.8 g/dL (6.4-8.2)
[2023-03-16 11:03] LABS: CORONAVIRUS COVID-19 NAA NEGATIVE (NEGATIVE); INFLUENZA A NAA NEGATIVE (NEGATIVE); INFLUENZA B NAA NEGATIVE (NEGATIVE)
[2023-03-16 11:10] LABS: INR 1.01 (0.86-1.11); PTT,PARTIAL THROMBOPLSTIN TIME 28.2 SEC (23.9-30.7)
[2023-03-16 12:15] LABS: APPEARANCE,URINE CLEAR; BILIRUBIN,URINE NEGATIVE (NEGATIVE); COLOR,URINE YELLOW; GLUCOSE,URINE NEGATIVE (NEGATIVE); KETONES,URINE NEGATIVE (NEGATIVE); LEUKOCYTE ESTERASE,URINE NEGATIVE (NEGATIVE); NITRITE,URINE NEGATIVE (NEGATIVE); OCCULT BLOOD,URINE NEGATIVE (NEGATIVE); PH,URINE 5.5 (5.0-8.0); PROTEIN,URINE NEGATIVE (NEGATIVE); UROBILINOGEN,URINE 0.2 EU/dL (<2.0)
[2023-03-16] MEDS ORDERED: Iopamidol 755 MG/ML 500 ML Multipack Bottle IVPUSH STA (13:05)
== END 2023-03-16 12:37 | disposition home or self-care (01) ==
LOC: MW.ED 10:02
DX: R42 Dizziness and giddiness (principal); I10 Essential (primary) hypertension; E78.5 Hyperlipidemia, unspecified; Z20.822 Contact with and (suspected) exposure to COVID-19; Z86.73 Personal history of transient ischemic attack (TIA), and cerebral infarction without residual deficits; Z88.5 Allergy status to narcotic agent; Z91.040 Latex allergy status; Z79.82 Long term (current) use of aspirin; Z79.899 Other long term (current) drug therapy
CPT/HCPCS: 0240U; 36415; 70450; 70496; 70498; 80053; 81003; 83690; 83735; 84484; 85025; 85610; 85730; 93005; 99285; J3490; Q9967; 93010; 99284

== ENCOUNTER 2023-12-30 14:23 | Inpatient (IN) | payer MEDICAID ==
[2023-12-30] MEDS ORDERED: Sodium Chloride 0.9% 10 ML Syringe FLUSH PRN (14:35)
[2023-12-30] MEDS ORDERED: Sodium Chloride 0.9% 2.5 ML Syringe FLUSH PRN (14:35)
[2023-12-30] MEDS: Albuterol/Ipratropium 3.0-0.5 MG/3 ML Neb Soln NEB ONE ×2 (14:38→15:17)
[2023-12-30] MEDS: Metoclopramide 10 MG/2 ML SDV IVPUSH ONE (15:12)
[2023-12-30] MEDS: methylPREDNISolone Sodium Succinate 125 MG/2 ML SDV IVPUSH ONE (15:12)
[2023-12-30] MEDS: Albuterol 0.083% 2.5 MG/3 ML Neb Soln NEB ONE ×3 (15:21→16:29)
[2023-12-30 15:30] LABS: BASOPHILS ABSOLUTE AUTO 0.07 K/uL (0.00-0.20); BASOPHILS PERCENT AUTO 0.9 % (0.0-1.0); EOSINOPHILS ABSOLUTE AUTO 0.43 K/uL (0.00-0.45); EOSINOPHILS PERCENT AUTO 5.6 % (0.0-6.0); HEMATOCRIT 45.2 % (42.0-52.0); IMMATURE GRAN ABSOLUTE AUTO 0.01 K/uL (0.00-0.05); IMMATURE GRAN PERCENT AUTO 0.1 % (0.0-0.4); LYMPHOCYTES ABSOLUTE AUTO 1.86 K/uL (1.00-4.80); LYMPHOCYTES PERCENT AUTO 24.3 % (24.0-44.0); MEAN CORPUSCULAR HEMOGLOBIN 29.4 pg (28.0-32.0); MEAN CORPUSCULAR HGB CONC 33.2 g/dL (32.0-36.0); MEAN CORPUSCULAR VOLUME 88.5 fL (83.0-99.0); MEAN PLATELET VOLUME 9.5 fL (9.4-12.4); MONOCYTES ABSOLUTE AUTO 0.79 K/uL (0.00-0.80); MONOCYTES PERCENT AUTO 10.3 % (0.0-8.0); NEUTROPHILS PERCENT AUTO 58.8 % (41.0-71.0); PLATELET COUNT,PLT 393 K/uL (150-400); RED BLOOD CELL COUNT 5.11 M/uL (4.52-5.90); WHITE BLOOD CELL COUNT,WBC 7.66 K/uL (3.9-11.3)
[2023-12-30 15:42] LABS: BASE EXCESS VENOUS 3.4 (-2.0-3.0); BICARBONATE,VENOUS 31 mEQ/mL (22-28); PCO2 VENOUS 59 mmHG (41-51); PH,VENOUS 7.33 (7.31-7.41)
[2023-12-30 15:43] LABS: PO2 VENOUS < 30 mmHG (35-45)
[2023-12-30 16:03] LABS: D-DIMER QUANTITATIVE 0.28 mg/L FEU (0.00-0.50); INR 1.02 (0.86-1.11)
[2023-12-30 16:04] LABS: BICARBONATE,ARTERIAL 26 mEq/L (22-26); PCO2 ARTERIAL 46 mmHG (35-45); PO2 ARTERIAL 78 mmHG (80-105)
[2023-12-30 16:10] LABS: LACTIC ACID 1.2 mmol/L (0.4-2.0)
[2023-12-30 16:15] LABS: A/G RATIO 1.3 (0.9-1.6); ALANINE AMINOTRANSFERASE,ALT 17 IU/L (14-63); ALBUMIN 4.1 g/dL (3.4-5.0); ALKALINE PHOSPHATASE 83 U/L (46-116); ASPARTATE AMNIOTRANSFERASE,AST 17 IU/L (15-37); BILIRUBIN TOTAL 1.6 mg/dL (0.2-1.0); BLOOD UREA NITROGEN,BUN 13 mg/dL (7.0-18.0); CALCIUM 9.2 mg/dL (8.5-10.1); CARBON DIOXIDE,CO2 31.9 mmol/L (21.0-32.0); CHLORIDE,CL 102 mmol/L (98-107); CREATININE 0.8 mg/dL (0.8-1.3); EST CRCL DRUG DOSING (CG) 98.87 mL/min; ETHANOL BLOOD MEDICAL <3 mg/dL; GLUCOSE RANDOM 98 mg/dL (74-106); LIPASE 24 U/L (16-77); POTASSIUM,K 4.6 mmol/L (3.5-5.1); PRO B-TYPE NATRIUR PEPT,BNPPRO 210 pg/mL (0-125); PROTEIN TOTAL,TP 7.2 g/dL (6.4-8.2); SODIUM,NA 138 mmol/L (136-148)
[2023-12-30 16:17] LABS: ESTIMATED GFR 102 mL/min (>60)
[2023-12-30] MEDS: cefTRIAXone 1 GM in Sodium Chloride 0.9% 50 ML IV ONE (17:14)
[2023-12-30] MEDS ORDERED: Albuterol 0.083% 2.5 MG/3 ML Neb Soln NEB PRN (17:34)
[2023-12-30] MEDS ORDERED: Albuterol/Ipratropium 3.0-0.5 MG/3 ML Neb Soln NEB PRN (17:34)
[2023-12-30 17:51] LABS: CORONAVIRUS COVID-19 NAA NEGATIVE (NEGATIVE); INFLUENZA A NAA NEGATIVE (NEGATIVE); INFLUENZA B NAA NEGATIVE (NEGATIVE); RESPIRATORY SYNCYTIAL VIR NAA NEGATIVE (NEGATIVE)
[2023-12-30] MEDS: methylPREDNISolone Sodium Succinate 40 MG/1 ML SDV IVPUSH SCH ×2 (18:34→20:28)
[2023-12-30] MEDS: Azithromycin 500 MG in Sodium Chloride 0.9% 250 ML IV ONE (18:37)
[2023-12-30] MEDS: Acetaminophen 325 MG Tab PO PRN (20:25)
[2023-12-30] MEDS: Albuterol/Ipratropium 3.0-0.5 MG/3 ML Neb Soln NEB SCH (21:14)
[2023-12-30 21:23] LABS: APPEARANCE,URINE CLEAR; BILIRUBIN,URINE NEGATIVE (NEGATIVE); COLOR,URINE YELLOW; GLUCOSE,URINE NEGATIVE (NEGATIVE); KETONES,URINE NEGATIVE (NEGATIVE); LEUKOCYTE ESTERASE,URINE NEGATIVE (NEGATIVE); NITRITE,URINE NEGATIVE (NEGATIVE); OCCULT BLOOD,URINE SMALL (NEGATIVE); PROTEIN,URINE NEGATIVE (NEGATIVE); UROBILINOGEN,URINE 0.2 EU/dL (<2.0)
[2023-12-30 21:33] LABS: AMPHETAMINES SCREEN, URINE PRESUMPTIVE POSITIVE (CUTOFF=500); BARBITURATE SCREEN,URINE NEGATIVE (CUTOFF=200); BENZODIAZEPINES SCREEN,URINE NEGATIVE (CUTOFF=150); BUPRENORPHINE SCREEN,URINE NEGATIVE (CUTOFF=10); METHADONE SCREEN, URINE NEGATIVE (CUTOFF=200); METHAMPHETAMINES SCREEN, URINE PRESUMPTIVE POSITIVE (CUTOFF=500); OXYCODONE SCREEN,URINE NEGATIVE (CUT0FF=100); PCP SCREEN,URINE NEGATIVE (CUTOFF=25); THC SCREEN,URINE 20 NG/ML PRESUMPTIVE POSITIVE (CUTOFF=50)
[2023-12-30 21:38] LABS: BACTERIA,URINE NOT SEEN (NEGATIVE); EPITHELIAL CELLS,URINE NOT SEEN (NONE-FEW); RBC,URINE 0-2 (0-2/HPF); WBC,URINE 0-2 (0-5/HPF)
[2023-12-31 06:42] LABS: BASOPHILS ABSOLUTE AUTO 0.02 K/uL (0.00-0.20); BASOPHILS PERCENT AUTO 0.2 % (0.0-1.0); HEMATOCRIT 42.7 % (42.0-52.0); HEMOGLOBIN 14.4 g/dL (14.0-18.0); IMMATURE GRAN ABSOLUTE AUTO 0.03 K/uL (0.00-0.05); IMMATURE GRAN PERCENT AUTO 0.3 % (0.0-0.4); LYMPHOCYTES ABSOLUTE AUTO 0.85 K/uL (1.00-4.80); LYMPHOCYTES PERCENT AUTO 9.1 % (24.0-44.0); MEAN CORPUSCULAR HEMOGLOBIN 29.6 pg (28.0-32.0); MEAN CORPUSCULAR HGB CONC 33.7 g/dL (32.0-36.0); MEAN CORPUSCULAR VOLUME 87.7 fL (83.0-99.0); MEAN PLATELET VOLUME 9.6 fL (9.4-12.4); MONOCYTES PERCENT AUTO 1.1 % (0.0-8.0); NEUTROPHILS ABSOLUTE AUTO 8.36 K/uL (1.80-7.70); NEUTROPHILS PERCENT AUTO 89.3 % (41.0-71.0); PLATELET COUNT,PLT 374 K/uL (150-400); RED BLOOD CELL COUNT 4.87 M/uL (4.52-5.90); WHITE BLOOD CELL COUNT,WBC 9.36 K/uL (3.9-11.3)
[2023-12-31 07:06] LABS: A/G RATIO 1.1 (0.9-1.6); ALBUMIN 3.9 g/dL (3.4-5.0); CARBON DIOXIDE,CO2 25.9 mmol/L (21.0-32.0); CREATININE 0.9 mg/dL (0.8-1.3); EST CRCL DRUG DOSING (CG) 85.63 mL/min; POTASSIUM,K 3.7 mmol/L (3.5-5.1); PROTEIN TOTAL,TP 7.3 g/dL (6.4-8.2)
[2023-12-31] MEDS ORDERED: cefTRIAXone 1 GM in Sodium Chloride 0.9% 50 ML IV SCH (17:45)
== END 2023-12-31 16:00 | disposition home or self-care (01) | DRG 192 ==
LOC: MW.ED 14:23 → MW.ICU 17:03
PROVIDERS: ADMIT Internal Medicine; ATTEND Internal Medicine
DX: J44.1 Chronic obstructive pulmonary disease with (acute) exacerbation (principal); Z66 Do not resuscitate; I10 Essential (primary) hypertension; E78.00 Pure hypercholesterolemia, unspecified; F41.9 Anxiety disorder, unspecified; G43.909 Migraine, unspecified, not intractable, without status migrainosus; Z88.5 Allergy status to narcotic agent; Z91.040 Latex allergy status; Z86.73 Personal history of transient ischemic attack (TIA), and cerebral infarction without residual deficits
CPT/HCPCS: 0241U; 36415; 36600; 71045; 71045-26; 80053; 80305-QW; 80307; 81001; 82803; 83605; 83690; 83880; 84145; 84484; 85025; 85379; 85610; 87040; 93005; 93010; 93306; 94640; 94660; 96374; 96375; 99285-25; 99291; A9270-GY; J0456; J0696; J2765; J2919; J3490; J7050; J7620-GY